=== PATIENT | female | born 1995 | race African-American/Black ===

== ENCOUNTER 2017-02-20 14:18 | Emergency (ER) | payer SELFPAY ==
[2017-02-20 14:32] VITALS: BP 123/73; PULSE 66; TEMP 98.2; BMI 31.8
--- NOTE | 2017-02-20 14:33 | PDOC ---
Rapid Medical Evaluation Chief Complaint: Injury Time Seen by Provider: 02/20/17 14:30 Medical Evaluation: Allergies Allergy/AdvReac Type Severity Reaction Status Date / Time No Known Allergies Allergy Verified 02/20/17 14:28 Vital Signs Temp Pulse Resp BP Pulse Ox 98.2 F 66 18 123/73 100 02/20/17 14:29 02/20/17 14:29 02/20/17 14:29 02/20/17 14:29 02/20/17 14:29 02/20/17 14:32 21 year old female with history of bipolar disorder presenting following a right ankle injury. Unable to bear full weight. -Urine -Right ankle/foot xray -To FT for further evaluation
--- NOTE | 2017-02-20 16:39 | PDOC ---
History of Present Illness - General Chief Complaint: Injury Stated Complaint: ANKLE INJURY Time Seen by Provider: 02/20/17 14:30 History Source: Patient Exam Limitations: No Limitations - History of Present Illness Initial Comments: 02/20/17 16:32 21 yr female with c/o twisting right ankle missed a step 3 days ago pt has pain to the outside of her right ankle. no swelling or deformity. 02/20/17 16:53 Occurred: reports: other (3 days ago ) Severity: reports: mild Past History - Past Medical History Allergies/Adverse Reactions: Allergies Allergy/AdvReac Type Severity Reaction Status Date / Time No Known Allergies Allergy Verified 02/20/17 14:28 Home Medications: Ambulatory Orders NK [No Known Home Medication] 02/20/17 Asthma: Yes Psychiatric Problems: Yes (BIPOLAR) - Psycho/Social/Smoking Cessation Hx Anxiety: Yes Suicidal Ideation: No Smoking Status: Yes Smoking History: Current every day smoker Have you smoked in the past 12 months: Yes Number of Cigarettes Smoked Daily: 6 Information on smoking cessation initiated: Yes 'Breaking Loose' booklet given: 02/20/17 Hx Alcohol Use: No Drug/Substance Use Hx: No Substance Use Type: Alcohol Trauma Specific PMHX - Complaint Specific PMHX Back Injury: No Neck Injury: No *Physical Exam - Vital Signs Last Vital Signs Temp Pulse Resp BP Pulse Ox 98.2 F 66 18 123/73 100 02/20/17 14:29 02/20/17 14:29 02/20/17 14:29 02/20/17 14:29 02/20/17 14:29 - Physical Exam General Appearance: Yes: Nourished, Appropriately Dressed HEENT: positive: EOMI, GREER Neck: positive: Supple Respiratory/Chest: positive: Lungs Clear, Normal Breath Sounds Cardiovascular: positive: Regular Rhythm, Regular Rate Musculoskeletal: positive: Normal Inspection Extremity: positive: Normal Capillary Refill, Normal Inspection, Normal Range of Motion, Tender (lateral malleolus right ankle ) Integumentary: positive: Normal Color, Dry, Warm Neurologic: positive: Fully Oriented, Alert, Normal Mood/Affect, Normal Response , Motor Strength 5/5 Procedures - Splinting Pre-Made Type: velcro (right ankle) ED Treatment Course - ADDITIONAL ORDERS Additional order review: Laboratory Results 02/20/17 14:45 Urine HCG, Qual Negative Medical Decision Making - Medical Decision Making 02/20/17 16:32 cc: twisted right ankle no gross swelling or deformity xray is negative air cast placed 02/20/17 16:54 *DC/Admit/Observation/Transfer Diagnosis at time of Disposition: Ankle sprain Qualifiers: Encounter type: initial encounter Involved ligament of ankle: other ligament Laterality: right Qualified Code(s): S93.491A - Sprain of other ligament of right ankle, initial encounter - Discharge Dispostion Disposition: HOME Condition at time of disposition: Good - Referrals Referrals: Berlin Calzada MD [Staff Physician] - - Patient Instructions Additional Instructions: elevate and apply warm compresses every 3-4hrs for 20 minutes take motrin (over the counter advil, ibuprofen, motrin) 600mg every 6hrs for pain use crutches to ambulate follow with the orthopedist for follow up if pain worsens or persists - Post Discharge Activity Work/School Note: Back to Work
== END 2017-02-20 17:05 | disposition home or self-care (01) ==
LOC: JERFT 14:18
PROC: 2W3SX1Z Immobilization of Right Foot using Splint (ICD-10-PCS; principal; 2017-02-20)
DX: S93.491A Sprain of other ligament of right ankle, initial encounter (principal); W10.9XXA Fall (on) (from) unspecified stairs and steps, initial encounter; Y93.89 Activity, other specified; Y92.9 Unspecified place or not applicable; F31.9 Bipolar disorder, unspecified; F17.210 Nicotine dependence, cigarettes, uncomplicated; J45.909 Unspecified asthma, uncomplicated
CPT/HCPCS: 73610-TC-RT; 73630-TC-RT; 84703; 99281-25

== ENCOUNTER 2017-05-23 06:57 | Emergency (ER) | payer SELFPAY ==
[2017-05-23 07:22] VITALS: TEMP 98; BMI 30.7
[2017-05-23] MEDS ORDERED: SODIUM CHLORIDE 1,000 ML IV STA (07:31)
[2017-05-23] MEDS ORDERED: PANTOPRAZOLE SODIUM 40 MG in SODIUM CHLORIDE 100 ML IVPB ONE (07:31)
[2017-05-23] MEDS ORDERED: ONDANSETRON 4 MG/2 ML VIAL IVPUSH ONE (07:31)
--- NOTE | 2017-05-23 07:55 | PDOC ---
*Physical Exam - Vital Signs Last Vital Signs Temp Pulse Resp BP Pulse Ox 98 F 92 H 19 122/70 100 05/23/17 07:21 05/23/17 07:21 05/23/17 07:21 05/23/17 07:21 05/23/17 07:21 Medical Decision Making - Medical Decision Making 05/23/17 07:55 Pt seen by the Advanced Practice Provider under my direct supervision Ancillary studies reviewed I agree with plan as outlined by the Advanced Practice Provider AMERICO Mcnair
[2017-05-23] MEDS ORDERED: ONDANSETRON 4 MG/2 ML VIAL ONE (08:21)
[2017-05-23] MEDS ORDERED: FAMOTIDINE 20 MG/50 ML IVPB 50 ML IVPB ONE (08:21)
[2017-05-23 09:00] LABS: BASOPHIL 0.3 % (0-2.0); EOSINOPHIL 1.4 % (0-4.5); MCH 27.1 pg (25.7-33.7); MCHC 32.5 g/dl (32.0-36.0); MEAN CELL VOLUME 83.3 fl (80-96); MEAN PLT VOLUME 9.1 fl (7.5-11.1); NEUTROPHILS 68.5 % (42.8-82.8); PLATELET COUNT 280 K/MM3 (134-434); RDW 13.3 % (11.6-15.6)
[2017-05-23 09:18] LABS: ALBUMIN 3.8 g/dl (3.4-5.0); ALK PHOS 51 U/L (45-117); ANION GAP 11 (8-16); BILIRUBIN,TOTAL 0.5 mg/dL (0.2-1.0); CALCIUM 8.6 mg/dL (8.5-10.1); CO2 24 mmol/L (21-32); CREATININE 0.6 mg/dL (0.55-1.02); GLUCOSE,RANDOM 102 mg/dL (74-106); SGOT/AST 10 U/L (15-37); SGPT/ALT 19 U/L (12-78); TOT PROT 7.2 g/dl (6.4-8.2)
[2017-05-23 09:30] LABS: URINE APPEARANCE CLEAR; URINE BILIRUBIN NEGATIVE (NEGATIVE); URINE BLOOD 3+ (NEGATIVE); URINE COLOR LT. YELLOW; URINE GLUCOSE (UA) NEGATIVE (NEGATIVE); URINE KETONE NEGATIVE (NEGATIVE); URINE LEUK ESTERASE NEGATIVE (NEGATIVE); URINE PROTEIN TRACE (NEGATIVE); URINE UROBILINOGEN 0.2 mg/dL (0.2-1.0)
[2017-05-23 09:32] LABS: URINE NITRITE POSITIVE (NEGATIVE)
--- NOTE | 2017-05-23 09:40 | PDOC ---
History of Present Illness - General Chief Complaint: Pain Stated Complaint: ABD PAIN,VOMITING, nose bleed Time Seen by Provider: 05/23/17 07:21 History Source: Patient Exam Limitations: No Limitations - History of Present Illness Travel History: No Initial Comments: 05/23/17 07:57 21-year-old female with history of PCOS presents with vomiting since yesterday after her period began. Patient states the past 2 years has been experienced vomiting with her menses but states today had blood streaked mild that was concerning along with a right nasal bleed. Patient denies abdominal pain except for lower abdominal cramping which is common with her menses. Patient denies GI disorders, history of gastritis, history of ulcers, heavy alcohol use, or poor diet. Patient does state smokes cigarettes daily along with marijuana use. Timing/Duration: reports: intermittent Quality: reports: mild, moderate, cramping Abdominal Pain Onset Location: reports: suprapubic Pain Radiation: reports: no radiation Activities at Onset: reports: none Aggravating Factors: improves with: None Alleviating Factors: improves with: None Past History - Travel Traveled outside of the country in the last 30 days: No Close contact w/someone who was outside of country & ill: No - Past Medical History Allergies/Adverse Reactions: Allergies Allergy/AdvReac Type Severity Reaction Status Date / Time No Known Allergies Allergy Verified 05/23/17 07:22 Home Medications: Ambulatory Orders NK [No Known Home Medication] 02/20/17 Asthma: Yes Psychiatric Problems: Yes (BIPOLAR) Other medical history: PCO S - Reproductive History LMP Normal: Yes Is Patient Now?: No - Psycho/Social/Smoking Cessation Hx Anxiety: Yes Suicidal Ideation: No Smoking Status: Yes Smoking History: Current every day smoker Have you smoked in the past 12 months: Yes Number of Cigarettes Smoked Daily: 20 Information on smoking cessation initiated: Yes 'Breaking Loose' booklet given: 05/23/17 Hx Alcohol Use: Yes (occasional) Drug/Substance Use Hx: No Substance Use Type: Alcohol, Marijuana Patient Lives Alone: No Lives with/in: spouse/SO Review of Systems - Review of Systems Able to Perform ROS?: Yes Constitutional: No: Symptoms Reported HEENTM: Yes: Nose Bleeding Respiratory: No: Symptoms reported Cardiac (ROS): No: Symptoms Reported ABD/GI: Yes: Nausea, Vomiting, Abdominal cramping : No: Symptoms Reported Musculoskeletal: No: Symptoms Reported Integumentary: No: Symptoms Reported Neurological: No: Symptoms reported Endocrine: No: Symptoms Reported Hematologic/Lymphatic: No: Symptoms Reported *Physical Exam - Vital Signs Last Vital Signs Temp Pulse Resp BP Pulse Ox 98 F 92 H 19 122/70 100 05/23/17 07:21 05/23/17 07:21 05/23/17 07:21 05/23/17 07:21 05/23/17 07:21 - Physical Exam General Appearance: Yes: Nourished, Appropriately Dressed. No: Apparent Distress HEENT: positive: Other (dried blood to right nare). negative: Pale Conjunctivae , Nasal Congestion, Rhinorrhea Neck: positive: Supple Respiratory/Chest: positive: Lungs Clear, Normal Breath Sounds. negative: Respiratory Distress, Accessory Muscle Use Cardiovascular: positive: Regular Rhythm, Regular Rate. negative: Murmur Gastrointestinal/Abdominal: positive: Soft, Tenderness (mild epigastric, no ru/ lq tenderness. mild midsuprapubic) Extremity: positive: Normal Capillary Refill Integumentary: positive: Normal Color, Warm, Moist Neurologic: positive: Motor Strength 5/5 (ambulatory) ED Treatment Course - LABORATORY CBC & Chemistry Diagram: 05/23/17 08:38 05/23/17 08:38 - Medications Given in the ED: ED Medications Discontinued Medications Generic Name Dose Route Start Last Admin Trade Name Freq PRN Reason Stop Dose Admin Pantoprazole Sodium 40 mg/ 100 mls @ 200 mls/hr 05/23/17 07:31 05/23/17 08:26 Sodium Chloride IVPB 05/23/17 08:00 200 mls/hr ONCE ONE Administration Sodium Chloride 1,000 mls @ 1,000 mls/hr 05/23/17 07:31 05/23/17 08:26 Normal Saline - IV 05/23/17 08:30 1,000 mls/hr ASDIR STA Administration Ondansetron HCl 4 mg 05/23/17 07:31 05/23/17 08:27 Zofran Injection IVPUSH 05/23/17 07:32 4 mg ONCE ONE Administration Medical Decision Making - Medical Decision Making 05/23/17 07:47 Patient with history of PCO S is complaining of severe abdominal cramping along with nausea and vomiting which normally accompanies her menstrual cycle. Patient came today since she also had blood streaked particles in her bile along with a right nasal bleed that resolved prior to arrival. Patient on exam had mild epigastric tenderness along with mid suprapubic tenderness. Patient will have labs to rule out electrolyte imbalance, infection, , and be given Zofran, Protonix, IV fluids along with urinalysis for drug toxicology. 05/23/17 10:09 Laboratory Tests 05/23/17 05/23/17 05/23/17 08:38 08:38 09:08 WBC 8.0 Hgb 12.4 Hct 38.1 Neutrophils % 68.5 D Sodium 140 Potassium 4.3 Anion Gap 11 BUN 9 Random Glucose 102 AST 10 L ALT 19 Lipase 108 Urine Protein Trace H Urine Ketones Negative Urine Blood 3+ H Urine Nitrite Positive Urine Bilirubin Negative Urine Urobilinogen 0.2 Urine HCG, Qual Negative Patient with noted urinary tract infection. Previous micro-on file from March 2016 shows Klebsiella pneumonia which was sensitive to cephalosporins and Bactrim. Patient to be discharged home with the same along with Zofran. Pt does state nausea has resolved but still with menstrual cramps. IV tylenol ordered *DC/Admit/Observation/Transfer Diagnosis at time of Disposition: Urinary tract infection Qualifiers: Urinary tract infection type: acute cystitis Abdominal pain Qualifiers: Abdominal location: lower abdomen, unspecified Qualified Code(s): R10.30 - Lower abdominal pain, unspecified Nausea and vomiting Qualifiers: Vomiting type: bilious vomiting Qualified Code(s): R11.14 - Bilious vomiting - Discharge Dispostion Disposition: HOME Condition at time of disposition: Improved - Patient Instructions Printed Discharge Instructions: DI for Urinary Tract Infection (UTI), Nausea and Vomiting-Adult Additional Instructions: Please take antibiotics as prescribed and may take Tylenol for abdominal cramps. If you become nauseous again you may take Zofran as needed for nausea.
[2017-05-23 09:41] LABS: URINE MUCUS RARE; URINE RBC 781 /hpf (0-3); URINE WBC 3 /hpf (3-5)
[2017-05-23] MEDS ORDERED: ACETAMINOPHEN 1000 MG/100 ML VIAL (NON FORMULARY) IVPB ONE (10:12)
[2017-05-23 10:16] LABS: URINE MARIJUANA THC POSITIVE ng/ml (CUTOFF=50)
[2017-05-23 10:22] LABS: URINE BACTERIA MANY /hpf (NONE SEEN)
[2017-05-23] MEDS ORDERED: ACETAMINOPHEN INJECTION 100 ML IVPB ONE (10:22)
[2017-05-23 11:02] VITALS: BP 128/69; PULSE 81
--- NOTE | 2017-05-26 09:50 | EKG ---
Test Reason : Blood Pressure : / mmHG Vent. Rate : 064 BPM Atrial Rate : 064 BPM P-R Int : 142 ms QRS Dur : 088 ms QT Int : 390 ms P-R-T Axes : 057 074 048 degrees QTc Int : 402 ms POOR DATA QUALITY, INTERPRETATION MAY BE ADVERSELY AFFECTED NORMAL SINUS RHYTHM WITH SINUS ARRHYTHMIA NORMAL ECG NO PREVIOUS ECGS AVAILABLE Confirmed by LUCIA BARR MD ([id number]) on 05/26/2017 9:50:28 AM Referred By: Confirmed By:LUCIA BARR MD
== END 2017-05-23 10:58 | disposition home or self-care (01) ==
LOC: JER 06:57
PROC: 3E033GC Introduction of Other Therapeutic Substance into Peripheral Vein, Percutaneous Approach (ICD-10-PCS; principal; 2017-05-23)
PROC: 3E033NZ Introduction of Analgesics, Hypnotics, Sedatives into Peripheral Vein, Percutaneous Approach (ICD-10-PCS; 2017-05-23)
PROC: 3E033GC Introduction of Other Therapeutic Substance into Peripheral Vein, Percutaneous Approach (ICD-10-PCS; 2017-05-23)
DX: N30.01 Acute cystitis with hematuria (principal); F31.9 Bipolar disorder, unspecified; E28.2 Polycystic ovarian syndrome; F17.210 Nicotine dependence, cigarettes, uncomplicated; Z59.0 Homelessness
CPT/HCPCS: 36415; 80053; 80307; 81003; 81015; 83690; 84703; 85025; 93005; 93010; 99284-25

== ENCOUNTER 2017-07-22 13:18 | Emergency (ER) | payer OTHER ==
[2017-07-22 13:31] VITALS: BP 115/58; PULSE 104; TEMP 100.3; BMI 31.6
[2017-07-22] MEDS ORDERED: IBUPROFEN 400 MG TABLET (FP) PO ONE ×2 (14:01→14:05)
--- NOTE | 2017-07-22 14:06 | PDOC ---
History of Present Illness - General Chief Complaint: Cold Symptoms Stated Complaint: HEADACHE, BACK PAIN Time Seen by Provider: 07/22/17 13:55 History Source: Patient Exam Limitations: No Limitations - History of Present Illness Initial Comments: 07/22/17 14:03 21 yr female no past medical history with fever started last night body aches lower back pain. LMP 1 weeks ago Severity: reports: mild Past History - Past Medical History Allergies/Adverse Reactions: Allergies Allergy/AdvReac Type Severity Reaction Status Date / Time No Known Allergies Allergy Verified 07/22/17 13:25 Home Medications: Ambulatory Orders Cephalexin [Keflex] 500 mg PO BID #14 capsule 07/22/17 Phenazopyridine HCl [Pyridium] 200 mg PO TID PRN #6 tablet 07/22/17 Asthma: Yes COPD: No Psychiatric Problems: Yes (BIPOLAR) - Suicide/Smoking/Psychosocial Hx Smoking Status: Yes Smoking History: Former smoker Have you smoked in the past 12 months: Yes Number of Cigarettes Smoked Daily: 0 Information on smoking cessation initiated: Yes 'Breaking Loose' booklet given: 05/23/17 Hx Alcohol Use: No Drug/Substance Use Hx: Yes (MARJIUANA) Substance Use Type: Alcohol, Marijuana Respiratory Specific PMHX - Complaint Specific PMHX Angina: No Bronchitis: No Pneumonia: No Pulmonary Embolus: No TB (Tuberculosis): No Review of Systems - Review of Systems Able to Perform ROS?: Yes Is the patient limited Maltese proficient: No Constitutional: Yes: Symptoms Reported, Fever HEENTM: Yes: Nose Congestion Respiratory: No: Cough ABD/GI: No: Symptoms Reported : Yes: Symptoms Reported, Urgency Musculoskeletal: Yes: Symptoms Reported, Back Pain (lower back ) Neurological: No: Symptoms reported *Physical Exam - Vital Signs Last Vital Signs Temp Pulse Resp BP Pulse Ox 100.3 F H 104 H 22 115/58 100 07/22/17 13:26 07/22/17 13:26 07/22/17 13:26 07/22/17 13:26 07/22/17 13:26 - Physical Exam General Appearance: Yes: Nourished, Appropriately Dressed HEENT: positive: EOMI, GREER, TMs Normal, Pharynx Normal Neck: positive: Supple. negative: Lymphadenopathy (R), Lymphadenopathy (L) Respiratory/Chest: positive: Lungs Clear, Normal Breath Sounds. negative: Chest Tender Cardiovascular: positive: Regular Rhythm, Regular Rate Gastrointestinal/Abdominal: positive: Normal Bowel Sounds, Soft Musculoskeletal: positive: Normal Inspection Extremity: positive: Normal Capillary Refill, Normal Inspection, Normal Range of Motion Integumentary: positive: Normal Color, Dry, Warm Neurologic: positive: Fully Oriented, Alert, Normal Mood/Affect, Normal Response , Motor Strength 5/5 Medical Decision Making - Medical Decision Making 07/22/17 14:04 cc: lower back pain leg pain urinary urgency and burning body aches will get UA, urine culture flu swab pt is speaking clear sentences states no resp distress or chest pain 07/22/17 14:05 *DC/Admit/Observation/Transfer Diagnosis at time of Disposition: Urinary tract infection Qualifiers: Urinary tract infection type: acute cystitis Hematuria presence: with hematuria Qualified Code(s): N30.01 - Acute cystitis with hematuria - Discharge Dispostion Disposition: HOME Condition at time of disposition: Good - Prescriptions Prescriptions: Cephalexin [Keflex] 500 mg PO BID #14 capsule Phenazopyridine HCl [Pyridium] 200 mg PO TID PRN #6 tablet PRN Reason: Pain - Referrals Referrals: Leatha Cadet MD [Primary Care Provider] - - Patient Instructions Printed Discharge Instructions: DI for Urinary Tract Infection (UTI) Additional Instructions: drink at least 2 liters of water a day avoid any acidy or spicy foods this can make pain worse when you urinate take the medications as prescribed follow with your PMD or heel sander rubber for follow up if symptoms do not improve or worsen take ibuprofen 600-800mg every 6-8hrs for fever or pain - Post Discharge Activity
[2017-07-22 14:20] LABS: URINE APPEARANCE SLCLOUDY; URINE BILIRUBIN NEGATIVE (NEGATIVE); URINE BLOOD 1+ (NEGATIVE); URINE COLOR YELLOW; URINE GLUCOSE (UA) NEGATIVE (NEGATIVE); URINE KETONE NEGATIVE (NEGATIVE); URINE NITRITE POSITIVE (NEGATIVE); URINE PROTEIN NEGATIVE (NEGATIVE); URINE UROBILINOGEN NEGATIVE mg/dL (0.2-1.0)
[2017-07-22 14:27] LABS: URINE BACTERIA MODERATE /hpf (NONE SEEN); URINE MUCUS RARE; URINE RBC 4; URINE WBC 9
[2017-07-22 20:03] LABS: URINE LEUK ESTERASE Negative (NEGATIVE)
--- NOTE | 2017-07-24 08:08 | PDOC ---
Patient Follow-up (Call Back) - Post ED Follow - Up Condition at time of discharge: Good Disposition at time of original discharge: HOME Reason for Call Back: Abnwl. Microbiology (Patient with positive urine culture, on kelfex, awaiting sensitivity.)
== END 2017-07-22 15:09 | disposition home or self-care (01) ==
LOC: JERFT 13:18
DX: N30.01 Acute cystitis with hematuria (principal); J45.909 Unspecified asthma, uncomplicated; F31.9 Bipolar disorder, unspecified
CPT/HCPCS: 36415; 81003; 81015; 87086; 87186; 87491; 87591; 87804; 99281-25